=== PATIENT | male | born 1955 | race Caucasian/White ===

== ENCOUNTER 2016-06-25 10:28 | Inpatient (IN) | payer MEDICARE ==
[~2016-06-25] VITALS: Ht 182.9 cm; Wt 83.1 kg
[2016-06-25 10:57] LABS: BASOPHILS % (AUTO) 0.4 % (0.0-2.0); EOSINOPHILS % (AUTO) 1.4 % (1.0-6.0); HEMATOCRIT 37.7 % (41-53); LYMPHOCYTES # (AUTO) 1.7 K/uL (1.0-4.8); LYMPHOCYTES % (AUTO) 19.8 % (22.0-44.0); MEAN CORPUSCULAR HEMOGLOBIN 30.2 pg (26.0-34.0); MEAN CORPUSCULAR HGB CONC 31.8 G/dL (31.0-37.0); MEAN CORPUSCULAR VOLUME 95 fL (80-100); MONOCYTES # (AUTO) 0.5 K/uL (0.1-1.0); MONOCYTES % (AUTO) 6.4 % (2.0-9.0); NEUTROPHILS # (AUTO) 6.1 K/uL (1.8-7.7); PLATELET COUNT (AUTO) 431 K/uL (150-450); RED BLOOD CELL COUNT(AUTO) 3.97 MIL/uL (4.50-5.90); RED CELL DISTRIBUTION WIDTH 16.7 % (11.5-14.5); WHITE BLOOD COUNT (AUTO) 8.5 K/uL (4.5-11.0)
[2016-06-25 11:07] LABS: ANION GAP 9 mmol/L (8-16); CALCIUM, TOTAL 9.4 mg/dL (8.8-10.5); CARBON DIOXIDE 29 mmol/L (22-29); CHLORIDE 106 mmol/L (98-107); CREATININE 0.89 mg/dL (0.60-1.30); GLOMERULAR FILTR. RATE CALC > 60 mL/min (>60); POTASSIUM 3.8 mmol/L (3.5-5.1); SODIUM SERUM 144 mmol/L (136-145); UREA NITROGEN, BLOOD 15 mg/dL (7-18)
[2016-06-25 11:12] LABS: ALANINE AMINOTRANSFERASE 29 U/L (12-78); ALBUMIN 2.7 g/dL (3.4-5.0); ASPARTATE AMINOTRANSFERASE 20 U/L (15-37); BILIRUBIN,TOTAL 0.5 mg/dL (0.1-1.0); TOTAL PROTEIN, SERUM 7.8 g/dL (6.4-8.2)
[2016-06-25] MEDS ORDERED: HALOPERIDOL 5 MG TABLET PO ONE (11:15)
[2016-06-25] MEDS ORDERED: CEPHALEXIN MONOHYDRATE 500 MG CAPSULE PO ONE (11:15)
[2016-06-25] MEDS ORDERED: DiphenhydrAMINE HCL 50 MG CAPSULE PO ONE (11:15)
[2016-06-25] MEDS ORDERED: LORazepam 2 MG TABLET PO ONE (11:15)
[2016-06-25] MEDS ORDERED: SULFAMETHOX/TRIMETH DS 800-160 MG/TABLET PO ONE (11:15)
[2016-06-25] MEDS ORDERED: LORazepam 2 MG TABLET PO PRN (11:30)
[2016-06-25] MEDS ORDERED: HALOPERIDOL 5 MG TABLET PO PRN (11:30)
[2016-06-25 15:14] VITALS: BP 127/81
[2016-06-25] MEDS: SULFAMETHOX/TRIMETH DS 800-160 MG/TABLET PO SCH (17:23)
[2016-06-25] MEDS: CEPHALEXIN MONOHYDRATE 500 MG CAPSULE PO SCH ×2 (17:23→21:41)
[2016-06-26 08:00] VITALS: BP 129/72
[2016-06-26] MEDS: CEPHALEXIN MONOHYDRATE 500 MG CAPSULE PO SCH ×4 (09:00→20:45)
[2016-06-26] MEDS: SULFAMETHOX/TRIMETH DS 800-160 MG/TABLET PO SCH ×2 (09:00→17:31)
[2016-06-26] MEDS: OLANZapine 5 MG RAPDIS TABLET PO SCH (17:00)
[2016-06-26 19:59] VITALS: BP 128/77
[2016-06-27] MEDS: OLANZapine 5 MG RAPDIS TABLET PO SCH ×2 (09:00→16:50)
[2016-06-27 09:17] VITALS: BP 134/71
[2016-06-27] MEDS: CEPHALEXIN MONOHYDRATE 500 MG CAPSULE PO SCH ×4 (09:23→20:39)
[2016-06-27] MEDS: SULFAMETHOX/TRIMETH DS 800-160 MG/TABLET PO SCH ×2 (09:23→16:50)
[2016-06-27 17:33] VITALS: BP 128/71
[2016-06-28 08:36] VITALS: BP 128/68
[2016-06-28] MEDS: CEPHALEXIN MONOHYDRATE 500 MG CAPSULE PO SCH ×4 (08:45→20:25)
[2016-06-28] MEDS: OLANZapine 5 MG RAPDIS TABLET PO SCH ×2 (08:45→16:32)
[2016-06-28] MEDS: SULFAMETHOX/TRIMETH DS 800-160 MG/TABLET PO SCH ×2 (08:45→16:32)
[2016-06-28 16:42] VITALS: BP 119/59
[2016-06-29 09:12] VITALS: BP 120/73
[2016-06-29] MEDS: SULFAMETHOX/TRIMETH DS 800-160 MG/TABLET PO SCH ×2 (10:40→16:16)
[2016-06-29] MEDS: CEPHALEXIN MONOHYDRATE 500 MG CAPSULE PO SCH ×4 (10:40→20:22)
[2016-06-29] MEDS: OLANZapine 5 MG RAPDIS TABLET PO SCH ×2 (10:40→16:16)
[2016-06-29] MEDS ORDERED: OLAN5Z PO (15:28)
[2016-06-30] MEDS ORDERED: CEPH500 PO (04:14)
[2016-06-30] MEDS ORDERED: BACTDSB PO (04:14)
[2016-06-30] MEDS: OLANZapine 5 MG RAPDIS TABLET PO SCH ×2 (09:00→17:03)
[2016-06-30 09:06] VITALS: BP 115/76
[2016-06-30] MEDS: SULFAMETHOX/TRIMETH DS 800-160 MG/TABLET PO SCH ×2 (10:34→17:02)
[2016-06-30] MEDS: CEPHALEXIN MONOHYDRATE 500 MG CAPSULE PO SCH ×4 (10:34→21:45)
[2016-06-30 17:09] VITALS: BP 139/87
[2016-07-01] MEDS: OLANZapine 5 MG RAPDIS TABLET PO SCH ×2 (09:45→16:53)
[2016-07-01] MEDS: CEPHALEXIN MONOHYDRATE 500 MG CAPSULE PO SCH ×4 (09:46→21:04)
[2016-07-01] MEDS: SULFAMETHOX/TRIMETH DS 800-160 MG/TABLET PO SCH ×2 (09:46→16:53)
[2016-07-01 10:56] VITALS: BP 140/79
[2016-07-01 16:23] VITALS: BP 131/84
[2016-07-02] MEDS: ZOLPIDEM TARTRATE 10 MG TABLET PO PRN (00:15)
[2016-07-02 08:09] VITALS: BP 133/56
[2016-07-02] MEDS: OLANZapine 5 MG RAPDIS TABLET PO SCH ×2 (08:22→17:28)
[2016-07-02] MEDS: SULFAMETHOX/TRIMETH DS 800-160 MG/TABLET PO SCH ×2 (08:22→17:28)
[2016-07-02] MEDS: CEPHALEXIN MONOHYDRATE 500 MG CAPSULE PO SCH ×4 (08:22→22:11)
[2016-07-02 16:00] VITALS: BP 119/75
[2016-07-03] MEDS: ZOLPIDEM TARTRATE 10 MG TABLET PO PRN (01:48)
[2016-07-03] MEDS: CEPHALEXIN MONOHYDRATE 500 MG CAPSULE PO SCH ×4 (08:18→20:54)
[2016-07-03] MEDS: SULFAMETHOX/TRIMETH DS 800-160 MG/TABLET PO SCH ×2 (08:18→16:36)
[2016-07-03] MEDS: OLANZapine 5 MG RAPDIS TABLET PO SCH ×2 (08:18→16:37)
[2016-07-03 08:49] VITALS: BP 135/70
[2016-07-04 08:30] VITALS: BP 136/65
[2016-07-04] MEDS: CEPHALEXIN MONOHYDRATE 500 MG CAPSULE PO SCH ×4 (09:38→20:15)
[2016-07-04] MEDS: SULFAMETHOX/TRIMETH DS 800-160 MG/TABLET PO SCH ×2 (09:38→16:25)
[2016-07-04] MEDS: OLANZapine 5 MG RAPDIS TABLET PO SCH ×2 (09:38→16:26)
[2016-07-04 16:00] VITALS: BP 111/68
[2016-07-05 08:39] VITALS: BP 121/63
[2016-07-05] MEDS: SULFAMETHOX/TRIMETH DS 800-160 MG/TABLET PO SCH (08:51)
[2016-07-05] MEDS: OLANZapine 5 MG RAPDIS TABLET PO SCH ×2 (08:51→16:22)
[2016-07-05] MEDS: CEPHALEXIN MONOHYDRATE 500 MG CAPSULE PO SCH ×2 (08:51→12:52)
[2016-07-05 16:00] VITALS: BP 124/71
[2016-07-06] MEDS: ZOLPIDEM TARTRATE 10 MG TABLET PO PRN
[2016-07-06 08:16] VITALS: BP 112/72
[2016-07-06] MEDS: OLANZapine 5 MG RAPDIS TABLET PO SCH ×2 (09:05→16:33)
[2016-07-06 18:25] VITALS: BP 121/76
[2016-07-07] MEDS: OLANZapine 5 MG RAPDIS TABLET PO SCH ×2 (08:23→16:04)
[2016-07-07 08:29] VITALS: BP 109/66
[2016-07-07 18:19] VITALS: BP 134/70
[2016-07-08 08:53] VITALS: BP 125/73
[2016-07-08] MEDS: OLANZapine 5 MG RAPDIS TABLET PO SCH ×2 (09:18→17:06)
[2016-07-08 16:24] VITALS: BP 124/77
[2016-07-09] MEDS: OLANZapine 5 MG RAPDIS TABLET PO SCH ×2 (08:44→18:07)
[2016-07-09 09:54] VITALS: BP 108/73
[2016-07-09] MEDS ORDERED: OLAN10TA6 PO (11:57)
== END 2016-07-09 21:48 | disposition home or self-care (01) | DRG 885 ==
LOC: EMS 10:28 → 3EC 13:54
PROVIDERS: ADMIT Psychiatry & Neurology Child & Adolescent Psychiatry; ATTEND Psychiatry & Neurology Child & Adolescent Psychiatry
DX: F29 Unspecified psychosis not due to a substance or known physiological condition (principal); E43 Unspecified severe protein-calorie malnutrition; L03.116 Cellulitis of left lower limb; F31.9 Bipolar disorder, unspecified; D64.9 Anemia, unspecified; F99 Mental disorder, not otherwise specified; F41.9 Anxiety disorder, unspecified; Z59.0 Homelessness; Z79.899 Other long term (current) drug therapy; Z68.24 Body mass index [BMI] 24.0-24.9, adult
CPT/HCPCS: 99285; G0480

== ENCOUNTER 2016-10-10 12:38 | Inpatient (IN) | payer MEDICARE ==
[~2016-10-10] VITALS: Ht 182.9 cm; Wt 78.2 kg
[~2016-10-10 12:38] MED LIST: OLAN10TA6 PO
[2016-10-10 12:54] LABS: BASOPHILS % (AUTO) 0.2 % (0.0-2.0); EOSINOPHILS % (AUTO) 1.4 % (1.0-6.0); HEMATOCRIT 46.4 % (41-53); HEMOGLOBIN 15.6 g/dL (13.5-17.5); LYMPHOCYTES # (AUTO) 1.7 K/uL (1.0-4.8); LYMPHOCYTES % (AUTO) 18.4 % (22.0-44.0); MEAN CORPUSCULAR HEMOGLOBIN 31.8 pg (26.0-34.0); MEAN CORPUSCULAR HGB CONC 33.7 G/dL (31.0-37.0); MEAN CORPUSCULAR VOLUME 94 fL (80-100); MONOCYTES # (AUTO) 0.4 K/uL (0.1-1.0); MONOCYTES % (AUTO) 4.6 % (2.0-9.0); NEUTROPHILS % (AUTO) 75.4 % (40.0-70.0); PLATELET COUNT (AUTO) 277 K/uL (150-450); RED BLOOD CELL COUNT(AUTO) 4.91 MIL/uL (4.50-5.90); RED CELL DISTRIBUTION WIDTH 14.1 % (11.5-14.5); WHITE BLOOD COUNT (AUTO) 9.3 K/uL (4.5-11.0)
[2016-10-10 13:05] LABS: ANION GAP 8 mmol/L (8-16); CALCIUM, TOTAL 9.8 mg/dL (8.8-10.5); CARBON DIOXIDE 30 mmol/L (22-29); CHLORIDE 105 mmol/L (98-107); CREATININE 1.08 mg/dL (0.60-1.30); GLOMERULAR FILTR. RATE CALC > 60 mL/min (>60); POTASSIUM 3.9 mmol/L (3.5-5.1); SODIUM SERUM 143 mmol/L (136-145); UREA NITROGEN, BLOOD 8 mg/dL (7-18)
[2016-10-10 13:10] LABS: ALANINE AMINOTRANSFERASE 25 U/L (12-78); ALBUMIN 4.2 g/dL (3.4-5.0); ASPARTATE AMINOTRANSFERASE 18 U/L (15-37); BILIRUBIN,TOTAL 0.8 mg/dL (0.1-1.0)
[2016-10-10] MEDS ORDERED: LORazepam 2 MG TABLET PO PRN (14:30)
[2016-10-10] MEDS ORDERED: HALOPERIDOL 5 MG TABLET PO PRN (14:30)
[2016-10-10] MEDS ORDERED: ZOLPIDEM TARTRATE 10 MG TABLET PO PRN (14:30)
[2016-10-10 14:39] LABS: APPEARANCE,URINE CLEAR (CLEAR); GLUCOSE, URINE (UA) NEGATIVE (NEGATIVE); KETONES,URINE NEGATIVE (NEGATIVE); LEUKOCYTE ESTERASE ,URINE NEGATIVE (NEGATIVE); OCCULT BLOOD,URINE NEGATIVE (NEGATIVE); PROTEIN,URINE NEGATIVE (NEGATIVE)
[2016-10-10 14:41] LABS: ADD UA MICROSCOPIC NO
[2016-10-10] MEDS ORDERED: DiphenhydrAMINE HCL 50 MG/ML VIAL ONE (14:54)
[2016-10-10] MEDS ORDERED: HALOPERIDOL LACTATE 5 MG/ML VIAL ONE (14:54)
[2016-10-10] MEDS ORDERED: LORazepam 2 MG/ML VIAL ONE (14:54)
[2016-10-10] MEDS ORDERED: DiphenhydrAMINE HCL 50 MG/ML VIAL IM ONE (15:00)
[2016-10-10] MEDS ORDERED: LORazepam 2 MG/ML VIAL IM ONE (15:00)
[2016-10-10] MEDS ORDERED: HALOPERIDOL LACTATE 5 MG/ML VIAL IM ONE (15:00)
[2016-10-10 20:53] VITALS: BP 141/73
[2016-10-11 05:14] VITALS: BP 127/80
[2016-10-11 08:10] VITALS: BP 140/80
[2016-10-11] MEDS: RisperiDONE 1 MG TABLET PO SCH (10:44)
[2016-10-11 16:13] VITALS: BP 136/73
[2016-10-11] MEDS: RisperiDONE 3 MG TABLET PO SCH (20:25)
[2016-10-11] MEDS: LITHIUM CARBONATE 600 MG CAPSULE PO SCH (20:25)
[2016-10-12 06:35] VITALS: BP 123/86
[2016-10-12 08:15] VITALS: BP 141/74
[2016-10-12 08:28] LABS: HEMOGLOBIN A1C 5.5 % (4.5-6.2)
[2016-10-12 08:55] LABS: VITAMIN B12 LEVEL 436 pg/mL (211-911)
[2016-10-12 09:12] LABS: CHOL/HDL RATIO 2.6 (4.2-7.3); CREATINE KINASE MB 2.6 ng/mL (0-5); CREATINE KINASE, TOTAL 399 U/L (39-308); THYROID STIMULATING HORMONE 2.24 uIU/mL (0.36-3.74)
[2016-10-12 09:23] LABS: URIC ACID 6.5 mg/dL (2.6-7.2)
[2016-10-12] MEDS: LITHIUM CARBONATE 600 MG CAPSULE PO SCH ×2 (09:40→20:14)
[2016-10-12] MEDS: RisperiDONE 1 MG TABLET PO SCH (09:40)
[2016-10-12 16:32] VITALS: BP 136/77
[2016-10-12] MEDS: RisperiDONE 3 MG TABLET PO SCH (20:14)
[2016-10-13 01:41] VITALS: BP 109/72
[2016-10-13 08:07] LABS: HEPATITIS Bs ANTIGEN SCREEN P Negative (Negative); HEPATITIS C AB SCREEN <0.1 s/co ratio (0.0-0.9)
[2016-10-13 08:10] VITALS: BP 143/75
[2016-10-13] MEDS: LITHIUM CARBONATE 600 MG CAPSULE PO SCH ×2 (09:09→20:33)
[2016-10-13] MEDS: RisperiDONE 1 MG TABLET PO SCH (09:09)
[2016-10-13 16:08] VITALS: BP 135/83
[2016-10-13] MEDS: RisperiDONE 3 MG TABLET PO SCH (20:33)
[2016-10-14 06:34] VITALS: BP 121/64
[2016-10-14 08:19] VITALS: BP 133/88
[2016-10-14] MEDS: RisperiDONE 1 MG TABLET PO SCH (08:42)
[2016-10-14] MEDS: LITHIUM CARBONATE 600 MG CAPSULE PO SCH (08:42)
[2016-10-14] MEDS ORDERED: LITH600 PO (11:39)
[2016-10-14] MEDS ORDERED: RISP3 PO (11:39)
[2016-10-14] MEDS ORDERED: RISP1 PO (11:39)
== END 2016-10-14 15:29 | disposition home or self-care (01) | DRG 885 ==
LOC: EMS 12:39 → B3A 18:24 → EMS 18:54 → B3A 20:47
PROVIDERS: ADMIT Psychiatry & Neurology Child & Adolescent Psychiatry; ATTEND Psychiatry & Neurology Child & Adolescent Psychiatry
DX: F20.0 Paranoid schizophrenia (principal); M62.82 Rhabdomyolysis; E78.5 Hyperlipidemia, unspecified; F17.200 Nicotine dependence, unspecified, uncomplicated; I10 Essential (primary) hypertension; Z59.0 Homelessness; Z78.1 Physical restraint status; Z79.899 Other long term (current) drug therapy; F41.9 Anxiety disorder, unspecified; Z59.9 Problem related to housing and economic circumstances, unspecified
CPT/HCPCS: 80074; 82306; 82607; 82746; 83036; 83735; 84439; 84443; 84550; 86592; 96372; 99285; G0480; J1200; J1630; J2060